=== PATIENT | female | born 1940 | race Caucasian/White ===

== ENCOUNTER 2019-12-06 07:19 | Day surgery (SDC) | payer OTHER, SELFPAY ==
[2019-12-06 07:43] VITALS: BP 172/89; PULSE 106; RESP 16; TEMP 35.8; O2SAT 96
[2019-12-06] MEDS: Balanced Salt Soln.-PLUS 500 ML BAG (08:30)
[2019-12-06] MEDS: Lidocaine 1% Pres-Free 5 ML VIAL (08:36)
[2019-12-06] MEDS: Tetracaine 0.5% 4 ML BTL OS (08:37)
[2019-12-06] MEDS: Lidocaine 2% Jelly 6 ML SYR (08:38)
[2019-12-06] MEDS: Moxifloxacin-PF 1 MG/ML VIAL (08:38)
[2019-12-06] MEDS: Povidone-Iodine Ophth 30 ML BTL (08:40)
--- NOTE | 2019-12-06 08:53 | W.PM.DSUDISC ---
Discharge Plan Disposition Patient Disposition: HOME Condition: Good Discharge Details Attending Provider: Pankaj Marks Primary Care Provider: Isabelle Alvarado Home Meds and New Rx's Prescriptions: No Action cyclobenzaprine 10 mg Tablet 10 mg PO TID PRNRF: 0 metoprolol succinate 50 mg tablet extended release 24 hr 50 mg PO DAILY RF: 0 tramadol 50 mg Tablet 50 mg PO DAILY PRNRF: 0 acetaminophen [Acetaminophen Extra Strength] 500 mg Tablet 1,000 mg PO Q6H PRN PRNRF: 0 pantoprazole 20 mg tablet,delayed release (DR/EC) 20 mg PO DAILY RF: 0 meclizine 25 mg tablet 25 mg PO TID PRNRF: 0 levothyroxine 50 mcg tablet 50 mcg PO DAILY RF: 0 magnesium oxide [Ruiz] 500 mg Tablet 500 mg PO HS RF: 0 nitroglycerin [Nitrostat] 0.4 mg Tablet, Sublingual 0.4 mg sublingual Q5M PRN (Reason: Chest Pain) RF: 0 hydrochlorothiazide 25 mg tablet 25 mg PO DAILY RF: 0 albuterol sulfate [Ventolin HFA] 90 mcg/actuation Hfa Aerosol Inhaler 2 puff INHALATION PRN PRNRF: 0 Artificial Tears([id number]) Drops 1 drp ophthalmic (eye) PRN PRNRF: 0 rosuvastatin 5 mg tablet 5 mg PO DAILY RF: 0 Spiriva with HandiHaler 18 mcg capsule, w/inhalation device 1 cap INHALATION DAILY RF: 0 aspirin 325 mg Tablet 325 mg PO DAILY RF: 0 Discharge Instructions Stand Alone Forms: Post-op Topical Cataract, Tessa Hancock (DSU) Discharge Orders Discharge Orders: Discharge Order (Routine); Ordered 12/06/19 Ordered By: Pankaj Marks DS: Diagnosis Discharge Diagnosis (1) Cortical cataract of left eye: Status: Resolved (2) Nuclear sclerotic cataract of left eye: Status: Resolved (3) Posterior subcapsular age-related cataract of left eye: Status: Resolved
--- NOTE | 2019-12-06 08:55 | ROE_ITS ---
Date of service: 12/06/19 Time of Service: 08:55 Operative Note Operative Note DATE OF PROCEDURE: 12/06/19 PRE-OP DIAGNOSIS: Nuclear/cortical/posterior subcapsular cataract, left eye POST-OP DIAGNOSIS: same PROCEDURE: Cataract extraction using phacoemulsification with intraocular lens implant, left eye SURGEON: Pankaj Marks ANESTHESIA: MAC and local (sub-tenon's anesthetic infiltration) PATHOLOGY: none sent COMPLICATIONS: None Patient was transported to: same day Patient's condition: stable Implants: Deangelo and Deangelo Vision / [employer] Tecnis ZCB00 Indications: Progressive decreased vision due to cataract, left eye Procedure Description: CATARACT SURGERY OPERATIVE REPORT PREOPERATIVE DIAGNOSIS: Nuclear/cortical/posterior subcapsular cataract, left eye POSTOPERATIVE DIAGNOSIS: Same OPERATION: Cataract extraction using phacoemulsification with posterior chamber intraocular lens implant, left eye. IOL: IOL System Planning Engineer/Model: J[employer]J Vision / EVIE Tecnis ZCB00 IOL Power: + 21.0 diopters IOL Serial Number: [id number] Optic Diameter: 6.0mm Haptic/Overall Diameter: 13.0mm PHACO INFO: Olivier [employer] Vision System with OZil and Active Fluidics Cumulative Dispersed Energy (CDE): 9.80 seconds SURGEON: Pankaj Marks MD, ZACH ANESTHESIA: Monitored Anesthesia Care (MAC), with local sub-tenon's anesthetic infiltration COMPLICATIONS: None SPECIMENS: None INDICATIONS FOR PROCEDURE: The patient is an 79-year-old lady with history of diminished visual acuity in both eyes secondary to the development of bilateral nuclear cortical and posterior subcapsular cataract. She is significantly symptomatic that she desires cataract surgery and attempt to improve and maximize her vision. PROCEDURE: The correct surgical eye was identified and marked as the left eye and the pupil was dilated in the preoperative area using mydriatics and cycloplegics. The dilated pupil size was 7.0 mm. Oral sedation was administered in the form of an Imprimis MKO Melt (midazolam 3mg/ketamine 25mg/ondansetron 2mg). The patient was brought to the operating room where cardiopulmonary monitoring was instituted and surgical time-out was performed, confirming the correct operative eye and IOL power. Topical anesthesia was administered and ophthalmic povidone-iodine 5% was instilled into the conjunctival fornices. Lidocaine gel was applied to the cornea and the willow-ocular area was prepped with Betadine 10% solution and dr aped in the usual sterile fashion for intraocular surgery, including an aperture drape. A Tegaderm transparent film dressing was cut in half and used to cover the lashes and lid margins. Care was taken to sequester the lashes and lid margins under the Tegaderm dressing. A lid speculum was placed between the lids of the operative eye and the Jun-Doug operating microscope was maneuvered into position. Solange scissors were then used to make a conjunctival buttonhole approximately 6mm posterior to the limbus in the inferonasal quadrant. Blunt dissection was carried out to expose bare sclera, and a blunt-tipped sub-tenon?s anesthesia cannula was introduced and passed posteriorly along the globe where non- preserved plain lidocaine was injected into posterior sub-Tenon?s space. A sideport knife was used to make a paracentesis port superior/superiortemporally. Intraocular phenylephrine/lidocaine was injected into the anterior chamber. The anterior chamber was then filled with Healon Pro. A 2.4mm keratome knife was used to create a half-thickness groove at the limbus and then to construct a three-plane near-clear corneal tunnel extending 2.0mm into clear cornea in the temporal position. . A flap was raised on the anterior capsule and capsulorhexis forceps were used to complete a continuous curvilinear capsulorhexis of 4.8 mm. Capsulorrhexis was slightly smaller than normal due to constant patient movement during the entire surgery. Balanced salt solution was then used to perform cortical cleaving hydrodissection and nuclear hydrodelineation until the lens could be freely rotated within the capsular bag. The lens nucleus was then disassembled and removed within the capsular bag and iris plane using phacoemulsification. Residual cortical material was removed using the 45-degree angled silicone I/A tip with 0.3mm port. The posterior capsule was carefully polished to remove as much residual lens epithelial cells as safely possible. Some residual posterior subcapsular cataract was remaining centrally, this could not be safely removed due to patient movement. The capsular bag was then inflated and the anterior chamber deepened with viscoelastic. The lens implant described above was inserted into the capsular bag using the EVIE [place] Injector. A Kuglen hook was used to dial the IOL into position. Residual viscoelastic was then removed first from posterior to the IOL, then from the anterior chamber using the I/A handpiece. The lens implant was noted to center nicely within the capsular bag. The incisions were stromally hydrated, and the anterior chamber was reformed using BSS. Then 0.5cc of moxifloxacin 1.0mg/ml were injected into the capsular bag and anterior chamber. The incisions were checked with a Weck spear and found to be secure. Several drops of ophthalmic povidone-iodine 5% were then applied to the eye followed by two drops of Imprimis combination prednisolone/moxifloxacin/nepafenac solution. The drapes were removed and a clear plastic protective eye shield was placed over the eye. The patient was then returned to [facility] Surgery in stable condition.
[2019-12-06 09:26] VITALS: BP 127/73; PULSE 86; RESP 18; TEMP 36.3; O2SAT 93
== END 2019-12-06 09:27 | disposition home or self-care (01) ==
PROVIDERS: PCP Family Medicine; Visit Provider Ophthalmology
PROC: (CPT 66984; principal; 2019-12-06 09:30)
DX: H25.012 Cortical age-related cataract, left eye (principal); H25.12 Age-related nuclear cataract, left eye; H25.042 Posterior subcapsular polar age-related cataract, left eye
CPT/HCPCS: 66984; V2632

== ENCOUNTER 2019-12-20 07:35 | Day surgery (SDC) | payer OTHER, SELFPAY ==
[2019-12-20 07:40] VITALS: BP 161/94; PULSE 108; RESP 18; TEMP 36.1; O2SAT 97
[2019-12-20] MEDS: Tropicam./Phenyleph. (1/2.5%) 5 ML BTL OD ×3 (07:58→08:17)
[2019-12-20] MEDS: Lactated Ringers 1,000 ML 80 ML IV (08:24)
[2019-12-20] MEDS: Tetracaine 0.5% 4 ML BTL OD (09:25)
[2019-12-20] MEDS: Balanced Salt Soln.-PLUS 500 ML BAG (09:34)
[2019-12-20] MEDS: Lidocaine 1% Pres-Free 5 ML VIAL (09:35)
[2019-12-20] MEDS: Lidocaine 2% Jelly 6 ML SYR (09:36)
[2019-12-20] MEDS: Moxifloxacin-PF 1 MG/ML VIAL (09:37)
[2019-12-20] MEDS: Povidone-Iodine Ophth 30 ML BTL (09:39)
--- NOTE | 2019-12-20 10:00 | W.PM.DSUDISC ---
Discharge Plan Disposition Patient Disposition: HOME Condition: Good Discharge Details Attending Provider: Pankaj Marks Primary Care Provider: Isabelle Alvarado Home Meds and New Rx's Prescriptions: No Action cyclobenzaprine 10 mg Tablet 10 mg PO TID PRNRF: 0 metoprolol succinate 50 mg tablet extended release 24 hr 50 mg PO DAILY RF: 0 tramadol 50 mg Tablet 50 mg PO DAILY PRNRF: 0 acetaminophen [Acetaminophen Extra Strength] 500 mg Tablet 1,000 mg PO Q6H PRN PRNRF: 0 pantoprazole 20 mg tablet,delayed release (DR/EC) 20 mg PO DAILY RF: 0 meclizine 25 mg tablet 25 mg PO TID PRNRF: 0 levothyroxine 50 mcg tablet 50 mcg PO DAILY RF: 0 magnesium oxide [Ruiz] 500 mg Tablet 500 mg PO HS RF: 0 nitroglycerin [Nitrostat] 0.4 mg Tablet, Sublingual 0.4 mg sublingual Q5M PRN (Reason: Chest Pain) RF: 0 hydrochlorothiazide 25 mg tablet 25 mg PO DAILY RF: 0 albuterol sulfate [Ventolin HFA] 90 mcg/actuation Hfa Aerosol Inhaler 2 puff INHALATION PRN PRNRF: 0 Artificial Tears([id number]) Drops 1 drp ophthalmic (eye) PRN PRNRF: 0 rosuvastatin 5 mg tablet 5 mg PO DAILY RF: 0 Spiriva with HandiHaler 18 mcg capsule, w/inhalation device 1 cap INHALATION DAILY RF: 0 aspirin 325 mg Tablet 325 mg PO DAILY RF: 0 Discharge Instructions Stand Alone Forms: Post-op Topical Cataract, Tessa Hancock (DSU) Discharge Orders Discharge Orders: Discharge Order (Routine); Ordered 12/20/19 Ordered By: Pankaj Marks DS: Diagnosis Discharge Diagnosis (1) Posterior subcapsular age-related cataract, right eye: Status: Resolved (2) Nuclear sclerotic cataract of right eye: Status: Resolved (3) Cortical cataract of right eye: Status: Resolved
--- NOTE | 2019-12-20 10:01 | ROE_ITS ---
Date of service: 12/20/19 Time of Service: 10:02 Operative Note Operative Note DATE OF PROCEDURE: 12/20/19 PRE-OP DIAGNOSIS: Nuclear/cortical/posterior subcapsular cataract, right eye POST-OP DIAGNOSIS: same PROCEDURE: Cataract extraction using phacoemulsification with intraocular lens implant, right eye SURGEON: Pankaj Marks ANESTHESIA: MAC and local (sub-tenon's anesthetic infiltration) ESTIMATED BLOOD LOSS: 0 PATHOLOGY: none sent COMPLICATIONS: None Patient was transported to: same day Patient's condition: stable Implants: Deangelo and Deangelo Vision / [employer] Tecnis ZCB00 intraocular lens Indications: Progressive decreased vision due to cataract, right eye Procedure Description: CATARACT SURGERY OPERATIVE REPORT PREOPERATIVE DIAGNOSIS: Nuclear/cortical/posterior subcapsular cataract, right eye POSTOPERATIVE DIAGNOSIS: Same OPERATION: Cataract extraction using phacoemulsification with posterior chamber intraocular lens implant, right eye. IOL: IOL Engraver Wood/Model: J&J Vision / EVIE Tecnis ZCB00 IOL Power: + 21.50 diopters IOL Serial Number: [id number] Optic Diameter: 6.0mm Haptic/Overall Diameter: 13.0mm PHACO INFO: Olivier [employer] and [employer] Vision System with OZil and Active Fluidics Cumulative Dispersed Energy (CDE): 6.37 seconds SURGEON: Pankaj Marks MD, ZACH ANESTHESIA: Monitored Anesthesia Care (MAC), with local sub-tenon's anesthetic infiltration COMPLICATIONS: None SPECIMENS: None INDICATIONS FOR PROCEDURE: The patient is an 79-year-old lady with history of diminished visual acuity in both eyes secondary to the development of bilateral nuclear, cortical, and posterior subcapsular cataracts in both eyes. She has already undergone cataract surgery in the left eye and is doing well postoperatively. She now presents for cataract surgery of the right eye. PROCEDURE: The correct surgical eye was identified and marked as the right eye and the pupil was dilated in the preoperative area using mydriatics and cycloplegics. The dilated pupil size was 7.0 mm. Oral sedation was administered in the form of an Imprimis MKO Melt (midazolam 3mg/ketamine 25mg/ondansetron 2mg). In addition, IV Toradol was also given to the patient for chronic shoulder pain. The patient was brought to the operating room where cardiopulmonary monitoring was instituted and surgical time-out was performed, confirming the correct operative eye and IOL power. Topical anesthesia was administered and ophthalmic povidone-iodine 5% was instilled into the conjunctival fornices. Lidocaine gel was applied to the cornea and the willow-ocular area was prepped with Betadine 10% solution and draped in the usual sterile fashion for intraocular surgery, including an aperture drape. A Tegaderm transparent film dressing was cut in half and used to cover the lashes and lid margins. Care was taken to sequester the lashes and lid margins under the Tegaderm dressing. A lid speculum was placed between the lids of the operative eye and the Jun-Doug operating microscope was maneuvered into position. Solange scissors were then used to make a conjunctival buttonhole approximately 6mm posterior to the limbus in the inferonasal quadrant. Blunt dissection was carried out to expose bare sclera, and a blunt-tipped sub-tenon?s anesthesia cannula was introduced and passed posteriorly along the globe where non- preserved plain lidocaine was injected into posterior sub-Tenon?s space. A sideport knife was used to make a paracentesis port inferiortemporally. Intraocular phenylephrine/lidocaine was injected into the anterior chamber. The anterior chamber was then filled with Healon Pro. A 2.4mm keratome knife was used to create a half-thickness groove at the limbus and then to construct a three-plane near-clear corneal tunnel extending 2.0mm into clear cornea in the superiortemporal position. . A flap was raised on the anterior capsule and capsulorhexis forceps were used to complete a continuous curvilinear capsulorhexis of 5.0 mm. The patient moved constantly during surgery, due to s houlder pain, creating a challenge. Balanced salt solution was then used to perform cortical cleaving hydrodissection and nuclear hydrodelineation until the lens could be freely rotated within the capsular bag. The lens nucleus was then disassembled and removed within the capsular bag and iris plane using phacoemulsification. Residual cortical material was removed using the I/A handpiece. The posterior capsule was carefully polished to remove as much residual lens epithelial cells as safely possible. The capsular bag was then inflated and the anterior chamber deepened with viscoelastic. The lens implant described above was inserted into the capsular bag using the EVIE [place] Injector. A Kuglen hook was used to dial the IOL into position. Residual viscoelastic was then removed first from posterior to the IOL, then from the anterior chamber using the I/A handpiece. The lens implant was noted to center nicely within the capsular bag. The incisions were stromally hydrated, and the anterior chamber was reformed using BSS. Then 0.5cc of moxifloxacin 1.0mg/ml were injected into the capsular bag and anterior chamber. The incisions were checked with a Weck spear and found to be secure. Several drops of ophthalmic povidone-iodine 5% were then applied to the eye followed by two drops of Imprimis combination prednisolone/moxifloxacin/nepafenac solution. The drapes were removed and a clear plastic protective eye shield was placed over the eye. The patient was then returned to Same Day Surgery in stable condition.
[2019-12-20 10:28] VITALS: BP 137/91; PULSE 92; RESP 16; TEMP 36.1; O2SAT 93
== END 2019-12-20 10:29 | disposition home or self-care (01) ==
PROVIDERS: PCP Family Medicine; Visit Provider Ophthalmology
PROC: (CPT 66984; principal; 2019-12-20 09:30)
DX: H25.041 Posterior subcapsular polar age-related cataract, right eye (principal)
CPT/HCPCS: 66984; V2632; J1885